=== PATIENT | male | born 1965 ===

== ENCOUNTER 2023-09-21 21:23 | Emergency (ER) | payer OTHER ==
[2023-09-21] MEDS ORDERED: Sodium Chloride 0.9% 2.5 ML Syringe FLUSH PRN (21:25)
[2023-09-21] MEDS ORDERED: Sodium Chloride 0.9% 10 ML Syringe FLUSH PRN (21:25)
[2023-09-21] MEDS ORDERED: fentaNYL 100 MCG/2 ML SDV ONE ×2 (21:25→21:49)
[2023-09-21] MEDS ORDERED: Midazolam 1 MG/ML 2 ML SDV ONE (21:28)
[2023-09-21] MEDS ORDERED: fentaNYL 100 MCG/2 ML SDV IVPUSH STA (21:48)
[2023-09-21 21:58] LABS: BASOPHILS PERCENT AUTO 0.6 % (0.0-1.0); EOSINOPHILS ABSOLUTE AUTO 0.25 K/uL (0.00-0.45); EOSINOPHILS PERCENT AUTO 1.5 % (0.0-6.0); HEMATOCRIT 47.5 % (42.0-52.0); HEMOGLOBIN 16.2 g/dL (14.0-18.0); IMMATURE GRAN ABSOLUTE AUTO 0.14 K/uL (0.00-0.05); IMMATURE GRAN PERCENT AUTO 0.8 % (0.0-0.4); LYMPHOCYTES ABSOLUTE AUTO 2.26 K/uL (1.00-4.80); LYMPHOCYTES PERCENT AUTO 13.2 % (24.0-44.0); MEAN CORPUSCULAR HEMOGLOBIN 29.3 pg (28.0-32.0); MEAN CORPUSCULAR HGB CONC 34.1 g/dL (32.0-36.0); MEAN CORPUSCULAR VOLUME 86.1 fL (83.0-99.0); MONOCYTES ABSOLUTE AUTO 1.16 K/uL (0.00-0.80); MONOCYTES PERCENT AUTO 6.8 % (0.0-8.0); NEUTROPHILS ABSOLUTE AUTO 13.16 K/uL (1.80-7.70); NEUTROPHILS PERCENT AUTO 77.1 % (41.0-71.0); PLATELET COUNT,PLT 247 K/uL (150-400); RED BLOOD CELL COUNT 5.52 M/uL (4.52-5.90); WHITE BLOOD CELL COUNT,WBC 17.07 K/uL (3.9-11.3)
[2023-09-21 22:12] LABS: INR 1.02 (0.86-1.11); PTT,PARTIAL THROMBOPLSTIN TIME 21.6 SEC (23.9-30.7)
[2023-09-21 22:24] LABS: A/G RATIO 1.3 (0.9-1.6); BILIRUBIN TOTAL 0.4 mg/dL (0.2-1.0); CALCIUM 8.6 mg/dL (8.5-10.1); CARBON DIOXIDE,CO2 25.3 mmol/L (21.0-32.0); CREATININE 1.2 mg/dL (0.8-1.3); EST CRCL DRUG DOSING (CG) 74.55 mL/min; POTASSIUM,K 5.8 mmol/L (3.5-5.1); PROTEIN TOTAL,TP 7.1 g/dL (6.4-8.2)
[2023-09-21] MEDS ORDERED: fentaNYL 100 MCG/2 ML SDV IVPUSH ONE (22:25)
[2023-09-21] MEDS ORDERED: Lactated Ringers 1,000 ML IV STA (22:25)
[2023-09-21] MEDS ORDERED: Midazolam 1 MG/ML 2 ML SDV IVPUSH ONE (22:26)
[2023-09-21 22:29] LABS: ETHANOL BLOOD MEDICAL < 3.0 mg/dL
== END 2023-09-21 22:15 ==
LOC: MW.ED 21:23
DX: S22.42XA Multiple fractures of ribs, left side, initial encounter for closed fracture (principal); S42.002A Fracture of unspecified part of left clavicle, initial encounter for closed fracture; S27.1XXA Traumatic hemothorax, initial encounter; S01.81XA Laceration without foreign body of other part of head, initial encounter; V59.40XA Driver of pick-up truck or van injured in collision with unspecified motor vehicles in traffic accident, initial encounter
CPT/HCPCS: 32551; 36415; 51702; 71045; 72170; 80053; 80307; 83690; 83735; 84484; 85025; 85610; 85730; 86850; 86900; 86901; 96361; 96374; 99285; J2250; J3010; J3490; J7120